=== PATIENT | male | born 1995 | race Caucasian/White ===

== ENCOUNTER 2021-08-30 10:00 | Emergency (ER) | payer MEDICAID ==
[~2021-08-30] VITALS: Ht 172.7 cm; Wt 83.0 kg
[2021-08-30 10:11] VITALS: BP 123/66
[2021-08-30] MEDS ORDERED: IBUP-2029 MT (10:21)
[2021-08-30] MEDS ORDERED: AMOX-424 MT (10:21)
== END 2021-08-30 10:24 | disposition home or self-care (01) ==
LOC: ER 10:00
DX: L60.0 Ingrowing nail (principal); L03.031 Cellulitis of right toe
CPT/HCPCS: 99283